=== PATIENT | female | born 1970 | race Hispanic/Latino ===

== ENCOUNTER 2017-10-02 10:50 | Emergency (ER) | payer OTHER, SELFPAY ==
[2017-10-02] MEDS ORDERED: predniSONE 20 MG TAB ONE (13:26)
== END 2017-10-02 13:53 | disposition home or self-care (01) ==
LOC: ERS 10:50
DX: M25.542 Pain in joints of left hand (principal); M25.541 Pain in joints of right hand; M19.90 Unspecified osteoarthritis, unspecified site; E78.5 Hyperlipidemia, unspecified; I10 Essential (primary) hypertension; F32.9 Major depressive disorder, single episode, unspecified
CPT/HCPCS: 99283; J7506

== ENCOUNTER 2017-11-16 11:31 | Outpatient (CLI) | payer OTHER | END 2017-11-16 11:32 | disposition home or self-care (01) | LOC: BICRAD 11:31 | PROVIDERS: ATTEND Family Medicine | DX: Z02.71 Encounter for disability determination (principal) ==

== ENCOUNTER 2019-12-02 15:21 | Inpatient (IN) | payer SELFPAY, OTHER ==
[~2019-12-02 15:21] MED LIST: Iopamidol 370 76% 50 ML VIAL FS ONE; Iopamidol-370 76% 500 ML 1 ML ONE
[2019-12-02] MEDS ORDERED: Enoxaparin Sodium 40 MG/0.4 ML SYRINGE SC SCH (16:00)
[2019-12-02] MEDS ORDERED: Lactated Ringer's 1,000 ML IV SCH (16:00)
[2019-12-02] MEDS: Acetaminophen 500 MG TAB PO PRN (16:18)
[2019-12-02] MEDS: Ketorolac Tromethamine 30 MG/ML VIAL IVP PRN (16:18)
[2019-12-02] MEDS ORDERED: Ondansetron ODT 4 MG TAB PO PRN (16:40)
[2019-12-02 16:45] VITALS: BMI 35.1
[2019-12-02 17:11] LABS: #Eosinphils 0.1 thou/uL (0.0-0.7); #Lymphocytes 1.3 thou/uL (1.20-3.40); #Monocytes 1.2 thou/uL (0.11-0.59); %Basophils 0.1 % (0.0-1.0); %Eosinophils 0.7 % (0.0-10.0); %Lymphocytes 7.6 % (21.0-51.0); %Monocytes 7.1 % (0.0-10.0); %Neutrophils 84.5 % (42.0-75.0); Hemoglobin 11.2 g/dL (12.0-16.0); Mean Corpuscular HGB CONC 31.1 g/dL (32.0-36.0); Mean Corpuscular Hemoglobin 29.6 pg (27.0-31.0); Mean Corpuscular Volume 95.3 fL (78.0-98.0); Mean Platelet Volume 7.4 fL (7.4-10.4); Platelet Count 398 thou/uL (130-400); RBC Distribution Width 12.4 % (11.5-14.5); Red Blood Cell (RBC) Count 3.79 mill/uL (4.20-5.40); White Blood Cell (WBC) Count 16.6 thou/uL (4.8-10.8)
[2019-12-02 17:50] LABS: ALT (SGPT) 14 U/L (8-55); AST (SGOT) 18 U/L (5-34); Alkaline Phosphatase 184 U/L (40-110); Anion Gap 12 mmol/L (10-20); BUN (Urea Nitrogen) 8 mg/dL (7.0-18.7); Bilirubin, Direct 0.4 mg/dL (0.1-0.3); Bilirubin, Total 0.6 mg/dL (0.2-1.2); Calc. Creatinine Clearance 146 mL/min (70-130); Calcium 8.8 mg/dL (7.8-10.44); Carbon Dioxide 28 mmol/L (22-29); Chloride 102 mmol/L (98-107); Estimated GFR-MDRD Greater than 90; Glucose 87 mg/dL (70-105); Lipase 10 U/L (8-78); Potassium 3.1 mmol/L (3.5-5.1); Protein, Total 6.8 g/dL (6.0-8.3); Sodium 139 mmol/L (136-145)
[2019-12-02] MEDS: Lactated Ringer's 1,000 ML IV SCH ×2 (17:51→22:24)
[2019-12-02] MEDS: Ondansetron PF 4 MG/2 ML Vial IVP PRN ×2 (17:51→22:22)
--- NOTE | 2019-12-02 22:36 | CT ---
CT ABDOMEN AND PELVIS WITH IV CONTRAST 12/02/2019 CLINICAL INFORMATION: Upper abdominal pain postcholecystectomy. Nausea and vomiting. COMPARISON: 11/21/2019 Technique: Multiple contiguous axial CT images are obtained through the abdomen and pelvis with IV contrast. Cor onal reformatted images are provided. FINDINGS: Lower Chest: Bibasilar consolidation is present with tiny bilateral pleural effusions. Consolidation may be related to volume loss, but pneumonia at either lung base cannot be excluded. Vessels: Abdominal aorta is normal in caliber without evidence of an aortic dissection. Abdomen: Portal vein:Patent Gallbladder: Surgically absent. There is a large fluid and gas collection seen in the gallbladder fos sa measuring 5.9 cm craniocaudal x8.7 cm AP x8.8 cm transverse worrisome for abscess collection. Adjacent inflammatory changes are seen. Liver: There is a small subcapsular collection seen along the medial and inferior margin of the poste rior segment right hepatic lobe which measures 8.9 cm x 1.6 cm. This can also be related to infection. There is linear low-density area seen within the liver immediately adjacent to the large c ollection in the gallbladder fossa which may represent reactive changes and minimal adjacent edema. Spleen: within normal limits. Pancreas: within normal limits. Adrenals: within normal limits. Kidneys: within normal limits. Bowel: Again noted is colonic diverticulosis. Loops of small bowel are normal in caliber. Appendix: Not visualized. Peritoneum: Fluid collection the gallbladder fossa with adjacent inflammatory stranding. Tiny amount of fluid is seen in the right paracolic gutter. Mesentery and Retroperitoneum: No enlarged mesenteric or retroperitoneal lymph nodes. Abdominal Wall: Focus of subcutaneous gas in the adipose layer left anterolateral aspect of the pelvi s probably related to site of recent injection. Pelvis: Reproductive Organs: No pelvic masses. Pelvis within normal limits. Bladder: Decompressed. Bones: No suspicious lytic or sclerotic osseous lesions are identified IMPRESSION: 1. Interval postcholecystectomy changes with a large fluid and gas collection in the gallbladder jayne a most suggestive of abscess collection. Adjacent inflammatory stranding is seen with tiny amount of fluid in the right paracolic gutter. 2. Tiny subcapsular collection along the medial aspect inferior right hepatic lobe. 3. Tiny bilateral pleural effusions with bibasilar consolidation. Areas of consolidation may be relat ed to volume loss, but pneumonia cannot be excluded.
--- NOTE | 2019-12-02 23:19 | RAD ---
EXAM: Two views chest PROVIDED CLINICAL HISTORY: Postoperative pain. COMPARISON: 11/21/2019 FINDINGS: Cardiac silhouette and bronchovascular markings are accentuated by the shallow depth of inspiration. There is mild patchy density at each lung base likely related to volume loss. Tiny left pleural effusion cannot be excluded. Postoperative changes with surgical clips right upper quadrant are noted . No other interval change. IMPRESSION: Bibasilar parenchymal densities probably due to bibasilar atelectasis. However, infiltrates at either lung base cannot be excluded. Follow-up chest x-ray with better depth of inspiration would be helpful..
[2019-12-03] MEDS: Ondansetron PF 4 MG/2 ML Vial IVP PRN (03:08)
[2019-12-03] MEDS: Lactated Ringer's 1,000 ML IV SCH ×4 (03:10→16:46)
[2019-12-03 05:09] LABS: #Eosinphils 0.1 thou/uL (0.0-0.7); #Lymphocytes 1.1 thou/uL (1.20-3.40); #Neutrophils 11.5 thou/uL (1.40-6.50); %Basophils 0.1 % (0.0-1.0); %Lymphocytes 7.8 % (21.0-51.0); %Monocytes 7.4 % (0.0-10.0); %Neutrophils 83.7 % (42.0-75.0); Hemoglobin 10.4 g/dL (12.0-16.0); Mean Corpuscular HGB CONC 31.5 g/dL (32.0-36.0); Mean Corpuscular Hemoglobin 29.4 pg (27.0-31.0); Mean Corpuscular Volume 93.2 fL (78.0-98.0); Platelet Count 422 thou/uL (130-400); RBC Distribution Width 12.3 % (11.5-14.5); Red Blood Cell (RBC) Count 3.55 mill/uL (4.20-5.40); White Blood Cell (WBC) Count 13.8 thou/uL (4.8-10.8)
[2019-12-03 05:33] LABS: ALT (SGPT) 11 U/L (8-55); AST (SGOT) 15 U/L (5-34); Albumin 2.6 g/dL (3.5-5.0); Alkaline Phosphatase 157 U/L (40-110); Anion Gap 12 mmol/L (10-20); BUN (Urea Nitrogen) 9 mg/dL (7.0-18.7); Bilirubin, Direct 0.5 mg/dL (0.1-0.3); Bilirubin, Total 0.7 mg/dL (0.2-1.2); Calc. Creatinine Clearance 132 mL/min (70-130); Calcium 8.3 mg/dL (7.8-10.44); Carbon Dioxide 27 mmol/L (22-29); Chloride 101 mmol/L (98-107); Estimated GFR-MDRD 87; Glucose 93 mg/dL (70-105); Lipase 8 U/L (8-78); Potassium 3.3 mmol/L (3.5-5.1); Sodium 137 mmol/L (136-145)
--- NOTE | 2019-12-03 05:37 | HP ---
HISTORY OF PRESENT ILLNESS: Tricia Bradley is seen today in followup after undergoing laparoscopic video cholecystectomy on 11/21/2019 for acute cholecystitis and cholelithiasis. Preoperatively, her bile duct was normal in caliber. Preoperatively, her liver function tests were normal. Lipase was normal. The patient was hospitalized overnight because of pain that she was experiencing. Preoperatively, her toxicology screen was positive for cocaine. Alcohol, nondetectable. The patient arrives in my office today stating that she has been tolerating liquids until 2 days ago, but now she is having some nausea and vomiting. She has had right upper quadrant subcostal pain that has been limiting her activity. She arrives in my office in a wheelchair. Sclerae are nonicteric. Skin is nonjaundiced, stating that she cannot tolerate liquids at all, cannot hold anything down and her pain is intolerable. She is admitted for postoperative evaluation. ALLERGIES: NONE. TOBACCO: None. ALCOHOL: None. MEDICATIONS: Ultram p.r.n. for arthritis. PAST SURGICAL HISTORY: , appendectomy, recent cholecystectomy. No cholangiograms. PAST MEDICAL HISTORY: Noncontributory. SOCIAL HISTORY: 4, para 4. Unemployed. She lives with her boyfriend. PRIMARY CARE PHYSICIAN: Maximiliano Alvarez MD PHYSICAL EXAMINATION: VITAL SIGNS: Weight 194 pounds, height 5 feet 2 inches, blood pressure 107/40, heart rate 82, temperature 98.6 degrees. She rates her pain as a 10. HEAD, EARS, EYES, NOSE AND THROAT: Unremarkable. Sclera are nonicteric. Oropharynx is dry. SKIN: Nonjaundiced. NECK: Carotids are palpable. No neck masses. LUNGS: Clear to auscultation. No wheezing. CARDIAC: Regular rate and rhythm without murmur or gallop. ABDOMEN: Soft, postoperative tenderness. Abdomen nondistended. Mild tenderness in right upper quadrant, probably as expected postoperatively. EXTREMITIES: Unremarkable. ASSESSMENT AND PLAN: Postoperative pain, nausea and vomiting, unable to tolerate her diet. We will plan hydration and evaluation. Based on laboratory findings, consider CAT scan. Check liver function tests and lipase. Job ID: [id number]
[2019-12-03] MEDS: Ketorolac Tromethamine 30 MG/ML VIAL IVP PRN ×3 (06:05→23:48)
[2019-12-03] MEDS: Enoxaparin Sodium 40 MG/0.4 ML SYRINGE SC SCH (09:23)
[2019-12-03] MEDS: Pantoprazole 40 MG VIAL IVP SCH (09:26)
[2019-12-03] MEDS: Piperacillin/Tazobactam 4.5 GM in Sodium Chloride 0.9% 100 ML IVPB SCH ×3 (09:37→21:50)
[2019-12-03 10:03] LABS: INR-International Normal Ratio 1.2; Prothrombin Time 14.8 sec (12.0-14.7)
--- NOTE | 2019-12-03 12:19 | NM ---
HEPATOBILIARY SCAN: HISTORY:Evaluate for bile leak RADIOPHARMACEUTICAL: 5.0 mCi Technetium 99m Mebrofenin injected intravenously FINDINGS: There is normal uptake of the radiotracer from the blood pool and excretion into the bowel. There is no extraluminal radiotracer accumulation to suggest presence of a bile leak. IMPRESSION:No evidence of bile leak.
[2019-12-03] MEDS ORDERED: Fentanyl 100 MCG/2 ML VIAL ONE (14:40)
[2019-12-03] MEDS ORDERED: Midazolam HCl 2 mg/2 ml Vial ONE (14:41)
--- NOTE | 2019-12-03 16:09 | PRG ---
DATE OF SERVICE: 12/03/2019 SUBJECTIVE: Ms. Bradley underwent a HIDA scan, that did not show a bile leak. Abdominal pelvic CAT scan revealed air-fluid collection right subhepatic. The patient's liver function test has been normal. She has been afebrile, although complaining of pain. OBJECTIVE: VITAL SIGNS: Temperature 98 degrees, pulse 72, blood pressure 153/87. LUNGS: Clear to auscultation. CARDIAC: Regular rate and rhythm without murmur, rub, or gallop. ABDOMEN: Soft, tenderness in the right upper quadrant. ASSESSMENT: Subhepatic abscess . PLAN: CT-guided drainage. Radiology has been requested to do that today. She will be taught drain care and wound care. Job ID: [id number]
--- NOTE | 2019-12-03 16:21 | CT ---
CT-guided right upper quadrant intra-abdominal abscess drainage INDICATION: Right upper quadrant intra-abdominal abscess TECHNIQUE: Informed consent was obtained. Preprocedure CT was performed for guidance purposes only. S ite overlying the collection was marked on the skin. Patient underwent conscious sedation under guidance of the radiology nurse. The patient received 50 mcg of IV fentanyl and 1 mg of IV Versed. Si te overlying the collection was sterilely prepped and draped. Buffered 1% lidocaine was administered into the overlying subcutaneous tissues and abdominal wall. Small dermatotomy was made. A 25-gauge 3 1/2 inch needle was placed in the region of the collection. CT images were performed demonstrated appropriate localization of the fluid collection in the right upper quadrant abdomen. Ut ilizing a tandem trocar method, a 5 [place]i [employer] catheter was guided into the collection. There is aspiration of purulent fluid. Following this an 035 guidewire was advanced collection. CT was utilize d to verify wire localization in the collection. Following this an 8 [place]raini soft tissue dilator was utilized. Following this, an 8 Bahraini all-purpose drain was advanced over the wire and into the fluid collection. The wire was removed. The pigtail catheter was formed. Following this 125 cc of purulent fluid was aspirated from the fluid collection. The 8 [place]raini all-purpose drain was then sewn to the skin. A Percu-Stay device was in place. The drainage catheter was then flushed utilizing 15 cc of sterile saline. The catheter was then placed to drainage by gravity within a drainage bag. The patient tolerated procedure without difficulty. 3 cc of the purulent aspirate was submitted to the laboratory for aerobic and anaerobic culture with Gram stain. IMPRESSION: Successful CT-guided right upper quadrant abscess drainage catheter placement. 125 cc of purulent fluid was aspirated from the fluid collection.
[2019-12-03 17:48] LABS: BF Color Brown; Clarity Cloudy/Turbid (Clear); Tube # EDTA
[2019-12-03] MEDS: Acetaminophen 500 MG TAB PO PRN (19:35)
[2019-12-04] MEDS: Lactated Ringer's 1,000 ML IV SCH ×3 (02:48→17:30)
[2019-12-04] MEDS: Piperacillin/Tazobactam 4.5 GM in Sodium Chloride 0.9% 100 ML IVPB SCH ×4 (03:23→22:07)
[2019-12-04] MEDS: Acetaminophen 500 MG TAB PO PRN ×2 (03:27→17:29)
[2019-12-04] MEDS: Ketorolac Tromethamine 30 MG/ML VIAL IVP PRN ×2 (05:50→14:43)
[2019-12-04] MEDS ORDERED: Morphine 4 MG/ML VIAL SLOW IVP PRN (07:15)
[2019-12-04] MEDS ORDERED: traMADol HCl 50 MG TAB PO PRN (07:47)
[2019-12-04] MEDS: Pantoprazole 40 MG VIAL IVP SCH (09:01)
[2019-12-04] MEDS: Enoxaparin Sodium 40 MG/0.4 ML SYRINGE SC SCH (09:02)
[2019-12-04] MEDS: Polyethylene Glycol 3350 17 GM Packet PO SCH (09:02)
[2019-12-04] MEDS: traMADol HCl 50 MG TAB PO PRN ×2 (11:30→21:17)
--- NOTE | 2019-12-04 18:56 | PRG ---
DATE OF SERVICE: 12/04/2019 SUBJECTIVE: Ms. Bradley is doing better today. She feels better. She wants to go home. Temperature 97.6 degrees, pulse 62, blood pressure 129/85. She is still having right upper quadrant pain. She is tolerating her diet. Drainage placed by CT scan yesterday is purulent drainage. Cultures, Gram stain, gram-negative donald. White count 13, down from 16 today. Laboratories normal. OBJECTIVE: LUNGS: Clear to auscultation. CARDIAC: Regular rate and rhythm without murmur or gallop. ABDOMEN: Soft. Mild tenderness in right upper quadrant. ASSESSMENT AND PLAN: Post cholecystectomy, subhepatic abscess, status post CT-guided drainage. HIDA scan negative for a leak. Drainage is nonbilious. Continue intravenous antibiotics for another 24 hours. Anticipate discharge home later tomorrow on oral antibiotics. Today and tomorrow, nurses will teach her drain care. She will need to follow up in my office in about 10 days with a repeat CAT scan of her abdomen. She is self-pay. We will need to arrange this. Job ID: [id number]
[2019-12-05] MEDS: Lactated Ringer's 1,000 ML IV SCH ×2 (01:31→11:01)
[2019-12-05] MEDS: Piperacillin/Tazobactam 4.5 GM in Sodium Chloride 0.9% 100 ML IVPB SCH ×2 (04:29→09:26)
[2019-12-05 06:04] LABS: #Eosinphils 0.2 thou/uL (0.0-0.7); #Lymphocytes 1.3 thou/uL (1.20-3.40); #Monocytes 0.5 thou/uL (0.11-0.59); #Neutrophils 4.2 thou/uL (1.40-6.50); %Basophils 0.1 % (0.0-1.0); %Eosinophils 2.6 % (0.0-10.0); %Lymphocytes 21.4 % (21.0-51.0); Hemoglobin 11.1 g/dL (12.0-16.0); Mean Corpuscular HGB CONC 32.5 g/dL (32.0-36.0); Mean Corpuscular Hemoglobin 30.2 pg (27.0-31.0); Mean Corpuscular Volume 93.1 fL (78.0-98.0); Mean Platelet Volume 7.5 fL (7.4-10.4); Platelet Count 470 thou/uL (130-400); RBC Distribution Width 12.3 % (11.5-14.5); Red Blood Cell (RBC) Count 3.66 mill/uL (4.20-5.40); White Blood Cell (WBC) Count 6.1 thou/uL (4.8-10.8)
[2019-12-05] MEDS: traMADol HCl 50 MG TAB PO PRN (06:50)
[2019-12-05] MEDS: Enoxaparin Sodium 40 MG/0.4 ML SYRINGE SC SCH (09:25)
[2019-12-05] MEDS: Polyethylene Glycol 3350 17 GM Packet PO SCH (09:26)
[2019-12-05] MEDS: Ketorolac Tromethamine 30 MG/ML VIAL IVP PRN (09:27)
[2019-12-05] MEDS: Pantoprazole 40 MG VIAL IVP SCH (09:27)
[2019-12-05] MEDS ORDERED: Ibuprofen 600 MG TAB PO PRN (12:09)
[2019-12-05 12:48] VITALS: BP 158/90; TEMP 98.1
[2019-12-05] MEDS ORDERED: Amoxicillin/Potassium Clav 875 MG TAB PO SCH (21:00)
--- NOTE | 2019-12-06 03:37 | DIS ---
DATE OF ADMISSION: 12/02/2019 DATE OF DISCHARGE: 12/05/2019 DISCHARGE DIAGNOSES: Post cholecystectomy, subhepatic abscess. PROCEDURES: This hospitalization; HIDA scan, no bile leak. CAT scan, subhepatic abscess. 12/03 CT-guided drainage of subhepatic abscess. FOLLOWUP: Dr. Loco's office 12/13/2019 after 0900 [facility] CAT scan. Financial counseling arranged to see patient prior to discharge, she is lack of insurance. DISCHARGE MEDICATIONS: Sent home with; 1. Augmentin 875 b.i.d. 14 days. 2. Tramadol 50 mg #30 one refill. 3. Motrin [id number] and Tylenol qqlg-[id number] for pain as necessary. DIET AND ACTIVITY: As tolerated. HISTORY: A 49-year-old female status post laparoscopic cholecystectomy for acute cholecystitis 11/21/2019. She presented to my office with increased pain, admitted to the hospital directly. Had normal liver function tests and slightly elevated white count, undergoing the above studies and procedures and discharged home with a CT-guided drain, which she is instructed on managing flushing it twice a day with saline, recording the output. She is to have a CAT scan on the day identified above and follow up in my office after that for probable drain removal. Job ID: [id number]
--- NOTE | 2019-12-06 13:13 | CT ---
CT-guided right upper quadrant intra-abdominal abscess drainage INDICATION: Right upper quadrant intra-abdominal abscess TECHNIQUE: Informed consent was obtained. Preprocedure CT was performed for guidance purposes only. S ite overlying the collection was marked on the skin. Patient underwent conscious sedation under guidance of the radiology nurse. The patient received 50 mcg of IV fentanyl and 1 mg of IV Versed. Si te overlying the collection was sterilely prepped and draped. Buffered 1% lidocaine was administered into the overlying subcutaneous tissues and abdominal wall. Small dermatotomy was made. A 25-gauge 3 1/2 inch needle was placed in the region of the collection. CT images were performed demonstrated appropriate localization of the fluid collection in the right upper quadrant abdomen. Ut ilizing a tandem trocar method, a 5 [place]ian [employer] catheter was guided into the collection. There is aspiration of purulent fluid. Following this an 035 guidewire was advanced collection. CT was utilize d to verify wire localization in the collection. Following this an 8 Estonian soft tissue dilator was utilized. Following this, an 8 Estonian all-purpose drain was advanced over the wire and into the fluid collection. The wire was removed. The pigtail catheter was formed. Following this 125 cc of purulent fluid was aspirated from the fluid collection. The 8 Estonian all-purpose drain was then sewn to the skin. A Percu-Stay device was in place. The drainage catheter was then flushed utilizing 15 cc of sterile saline. The catheter was then placed to drainage by gravity within a drainage bag. The patient tolerated procedure without difficulty. 3 cc of the purulent aspirate was submitted to the laboratory for aerobic and anaerobic culture with Gram stain. IMPRESSION: Successful CT-guided right upper quadrant abscess drainage catheter placement. 125 cc of purulent fluid was aspirated from the fluid collection. Transcribed Date/Time: 12/06/2019 1:13 PM
--- NOTE | 2019-12-08 08:54 | PQF ---
[employer] Manager Installation [employer] Winform ViewerRODRIGUEZ NANCYSELIN MILIAN MD [id number] CLINICAL DOCUMENTATION CLARIFICATION FORM: POST DISCHARGE Addendum to original discharge summary date: ____ Late entry note date: __ DATE: 12/08/2019 ATTN: Selin Rockwell Please exercise your independent, professional judgment in responding to the clarification form. Clinical indicators are provided on the bottom of this form for your review Please check appropriate box(s): [ ] Subhepatic abscess is a complication of recent cholecystectomy [ ] Subhepatic abscess is not a complication of recent cholecystectomy [ ] Other diagnosis [ ] Unable to determine In addition, please specify: Present on Admission (POA): [ ] Yes [ ] No [ ] Unable to determine CLINICAL INDICATORS - SIGNS / SYMPTOMS / LABS Post cholecystectomy, subhepatic abscess, status post CT-guided drainage - PN by Selin Loco MD Interval postcholecystectomy changes with a large fluid and gas collection in the gallbladder fossa most suggestive of abscess collection - CT abdomen/pelvic 12/01 by Danny Cole MD Patient seen today in followup after undergoing laparoscopic video cholecystectomy on 11/20 for acute cholecystitis and cholelithiasis - H&P Postoperative pain, nausea and vomiting, unable to tolerate her diet. Based on laboratory findings, consider CAT scan - H&P RISK FACTORS Recent laparoscopic cholecystectomy - Discharge summary TREATMENT: CT-guided intraabdominal abscess drainage - CT abscess drainage 12/02 by Nik Campbell MD IV Zosyn 12/02 to 12/04 - Medications Augmentin 875 mg PO 12/04 - Medication (This form is maintained as a part of the permanent medical record) 2014 [employer] All Rights Reserved Carina [email or web address]
== END 2019-12-05 15:50 | disposition home or self-care (01) | DRG 373 ==
LOC: SURG B 15:21
PROVIDERS: ADMIT Specialist; ATTEND Specialist
PROC: 0W9G30Z Drainage of Peritoneal Cavity with Drainage Device, Percutaneous Approach (ICD-10-PCS; principal; 2019-12-03)
DX: K65.1 Peritoneal abscess (principal); F14.10 Cocaine abuse, uncomplicated; Z90.49 Acquired absence of other specified parts of digestive tract
CPT/HCPCS: 36415; 49020; 71046; 74177; 77002; 78226; 80048; 80076; 83690; 85025; 85060; 85610; 87070; 87077; 87186; 87205; 89051; A9537; C1729; C9113; J1650; J1885; J2250; J2405; J2543; J3010; J3490; Q9967

== ENCOUNTER 2019-12-07 13:15 | Emergency (ER) | payer OTHER, SELFPAY ==
[~2019-12-07 13:15] MED LIST changes: -Iopamidol 370 76% 50 ML VIAL FS ONE
--- NOTE | 2019-12-07 14:33 | CT ---
CT Abdomen Pelvis W Con: 12/07/2019 1:42 PM CLINICAL INFORMATION: Status post pigtail drainage catheter placement in an abscess in the gallbladde r fossa COMPARISON 12/02/2019: None. TECHNIQUE: Multiple contiguous axial images were obtained and a CT of the abdomen and pelvis with IV contrast. C oronal and sagittal reformats were performed. FINDINGS: Lower Chest: Small right pleural effusion with adjacent atelectasis Abdomen: Liver: The previously seen large fluid collection in the gallbladder fossa is nearly completely gone. A pigtail catheter is seen in the anterior aspect of the gallbladder fossa. Small bubbles of air are seen in the gallbladder fossa. Bile Ducts: Normal caliber. Gallbladder : Removed Pancreas: within normal limits. Spleen: within normal limits. Adrenals: within normal limits. Kidneys: within normal limits. Pelvis: Reproductive Organs: No pelvic masses. Ureters: within normal limits. Bladder: within normal limits. Peritoneum: No ascites or free air, no fluid collection. Bowel: Normal caliber. Scattered diverticula in the colon. Mesentery and Retroperitoneum: No enlarged mesenteric or retroperitoneal lymph nodes. Vessels: Normal. Abdominal Wall: within normal limits. Bones: Within normal limits IMPRESSION: 1. Resolution of abscess in the gallbladder fossa adjacent to the liver 2. Diverticulosis 3. Trace right pleural effusion with adjacent atelectasis
== END 2019-12-07 15:11 | disposition home or self-care (01) ==
LOC: ERS 13:15
DX: Z48.815 Encounter for surgical aftercare following surgery on the digestive system (principal); M19.90 Unspecified osteoarthritis, unspecified site; E78.5 Hyperlipidemia, unspecified; I10 Essential (primary) hypertension; F17.210 Nicotine dependence, cigarettes, uncomplicated; Z79.899 Other long term (current) drug therapy; Z79.891 Long term (current) use of opiate analgesic
CPT/HCPCS: 74177; Q9967

== ENCOUNTER 2020-05-23 12:26 | Emergency (ER) | payer SELFPAY | END 2020-05-23 13:30 | disposition home or self-care (01) | LOC: ERS 12:26 | DX: M19.031 Primary osteoarthritis, right wrist (principal); E78.5 Hyperlipidemia, unspecified; I10 Essential (primary) hypertension; F17.210 Nicotine dependence, cigarettes, uncomplicated | CPT/HCPCS: 99281 ==

== ENCOUNTER 2020-07-10 07:35 | Outpatient (CLI) | payer OTHER ==
--- NOTE | 2020-07-10 08:52 | ULT ---
Pelvic ultrasound: 07/10/2020 COMPARISON: None HISTORY: Postmenopausal bleeding TECHNIQUE: Multiplanar grayscale sonographic imaging of the pelvis is obtained with transabdominal an d endovaginal imaging. The ovaries are assessed with Doppler interrogation including color flow and spectral analysis. FINDINGS: The uterus measures 11.1 x 4.9 x 5.5 cm. No uterine mass is identified. The endometrium is somewhat ill-defined and difficult to accurately measure. The estimated thickness of the endometrium is approximately 7 mm on the transaxial imaging. No free fluid is seen in the pelvis. There is a 5 x 5 mm hypoechoic area associated with the endometrial stripe which may represent a smal l cystic structure. The right ovary measures 2.7 x 1.6 x 1.7 cm and the left ovary measures 2.7 x 3.2 x 1.7 cm. The ovari es demonstrate normal blood flow without evidence for mass. IMPRESSION: The endometrial stripe is difficult to measure/define. Endometrial stripe is estimated at 7 mm which would be slightly thickened/abnormal for a postmenopausal female. Differential diagnosis for a thickened endometrium includes endometrial hyperplasia, endometrial polyp disease, an d endometrial carcinoma.
== END 2020-07-10 07:36 | disposition home or self-care (01) ==
LOC: BICULT 07:35
PROVIDERS: ATTEND Family Medicine
DX: N95.0 Postmenopausal bleeding (principal)
CPT/HCPCS: 76856

== ENCOUNTER 2022-06-05 22:51 | Inpatient (IN) | payer OTHER ==
[2022-06-06] MEDS ORDERED: Dextrose 50% Abboject 50 ML SYRINGE SLOW IVP PRN (01:34)
[2022-06-06] MEDS ORDERED: Dextrose 5% in Water 1,000 ML IV PRN (01:34)
[2022-06-06] MEDS ORDERED: hydrALAZINE 20 MG/ML VIAL SLOW IVP PRN (01:34)
[2022-06-06] MEDS ORDERED: Ondansetron PF 4 MG/2 ML Vial IVP PRN (01:34)
[2022-06-06 01:38] LABS: #Lymphocytes 1.1 thou/uL (1.20-3.40); #Monocytes 0.6 thou/uL (0.11-0.59); #Neutrophils 8.3 thou/uL (1.40-6.50); %Basophils 0.4 % (0.0-1.0); %Eosinophils 0.2 % (0.0-10.0); %Lymphocytes 10.9 % (21.0-51.0); %Monocytes 6.2 % (0.0-10.0); %Neutrophils 82.3 % (42.0-75.0); Hemoglobin 12.5 g/dL (12.0-16.0); Mean Corpuscular HGB CONC 34.7 g/dL (32.0-36.0); Mean Corpuscular Hemoglobin 34.2 pg (27.0-31.0); Mean Corpuscular Volume 98.6 fl (78.0-98.0); Mean Platelet Volume 7.7 fL (7.4-10.4); Platelet Count 224 10x3/uL (130-400); RBC Distribution Width 12.2 % (11.5-14.5); Red Blood Cell (RBC) Count 3.65 mill/uL (4.20-5.40)
[2022-06-06] MEDS ORDERED: Sodium Chloride 0.9% 1,000 ML IV SCH ×3 (01:45→03:00)
[2022-06-06] MEDS ORDERED: Ketorolac Tromethamine 30 MG/ML VIAL IVP SCH (01:45)
[2022-06-06 01:46] LABS: Prothrombin Time 13.1 sec (12.0-14.7)
[2022-06-06 01:47] LABS: PTT 33.6 sec (22.9-36.1)
[2022-06-06] MEDS: Morphine 4 MG/ML VIAL SLOW IVP PRN ×3 (01:49→15:57)
[2022-06-06 01:58] LABS: ALT (SGPT) 43 U/L (8-55); AST (SGOT) 30 U/L (5-34); Albumin 4.1 g/dL (3.5-5.0); Alkaline Phosphatase 118 U/L (40-110); Anion Gap 14 mmol/L (10-20); BUN (Urea Nitrogen) 17 mg/dL (9.8-20.1); Calc. Creatinine Clearance 136 mL/min (70-130); Calcium 8.8 mg/dL (7.8-10.44); Carbon Dioxide 24 mmol/L (22-29); Chloride 107 mmol/L (98-107); Estimated GFR 83; Globulin 3.3 g/dL (2.4-3.5); Glucose 124 mg/dL (70-105); Magnesium 1.9 mg/dL (1.6-2.6); Phosphorus 2.5 mg/dL (2.3-4.7); Potassium 4.5 mmol/L (3.5-5.1); Protein, Total 7.4 g/dL (6.0-8.3); Sodium 140 mmol/L (136-145)
[2022-06-06] MEDS: Cyclobenzaprine 10 MG TAB PO PRN (02:00)
[2022-06-06 02:06] VITALS: BMI 44.3
[2022-06-06] MEDS ORDERED: Sodium Phosphate 15 MMOL in Sodium Chloride 0.9% 250 ML 250 ML IVPB SCH (03:00)
[2022-06-06 04:34] LABS: Amphetamine Not Detected (NotDetected); Barbiturates Screen Not Detected (NotDetected); Benzodiazepine Screen Not Detected (NotDetected); Cocaine Metabolite Screen Detected (NotDetected); Methadone Not Detected (NotDetected); Methamphetamine Not Detected (NotDetected); Opiate Screen Detected (NotDetected); Oxycodone Screen Not Detected (NotDetected); Phencyclidine (PCP) Not Detected (NotDetected); THC/Cannabinoid Screen Not Detected (NotDetected); Tricyclic Screen Not Detected (NotDetected)
[2022-06-06] MEDS: Acetaminophen/Codeine 30-300mg Tablet PO SCH ×3 (04:43→17:50)
[2022-06-06] MEDS: Acetaminophen 325 MG TAB PO SCH ×3 (04:44→17:49)
[2022-06-06] MEDS: Gabapentin 300 MG CAP PO SCH ×3 (04:44→21:12)
[2022-06-06 05:00] LABS: Bilirubin, Total 0.4 mg/dL (0.2-1.2)
[2022-06-06] MEDS: Famotidine 20 MG TAB PO SCH ×2 (08:34→21:12)
[2022-06-06] MEDS: Ketorolac Tromethamine 30 MG/ML VIAL IVP SCH ×3 (08:34→21:10)
[2022-06-06] MEDS ORDERED: Magnesium 2 GM/50 ML(in water) 2 GM in Premix Bag 1 BAG IVPB SCH (09:00)
[2022-06-06] MEDS ORDERED: TETANUS, DIPHTHERIA TOX,ADULT (TDVAX) 0.5 ML VIAL IM ONE (09:00)
[2022-06-06] MEDS: Polyethylene Glycol 3350 17 GM Packet PO SCH (09:30)
[2022-06-06] MEDS: Senokot S 8.6-50 MG TAB PO SCH ×2 (09:30→21:12)
[2022-06-06] MEDS ORDERED: CEFAZOLIN 2 GM in Sodium Chloride 0.9% 100 ML IVPB SCH (13:00)
[2022-06-07] MEDS: Acetaminophen/Codeine 30-300mg Tablet PO SCH ×4 (00:34→18:32)
[2022-06-07] MEDS: Acetaminophen 325 MG TAB PO SCH ×4 (00:34→18:32)
[2022-06-07] MEDS: Ketorolac Tromethamine 30 MG/ML VIAL IVP SCH ×4 (03:29→20:38)
[2022-06-07] MEDS: Gabapentin 300 MG CAP PO SCH ×3 (05:03→20:38)
[2022-06-07 06:40] LABS: #Eosinphils 0.1 thou/uL (0.0-0.7); #Lymphocytes 0.8 thou/uL (1.20-3.40); #Monocytes 0.5 thou/uL (0.11-0.59); #Neutrophils 4.7 thou/uL (1.40-6.50); %Basophils 0.3 % (0.0-1.0); %Eosinophils 1.9 % (0.0-10.0); %Monocytes 7.4 % (0.0-10.0); %Neutrophils 77.4 % (42.0-75.0); Mean Corpuscular HGB CONC 32.6 g/dL (32.0-36.0); Mean Corpuscular Hemoglobin 32.7 pg (27.0-31.0); Mean Platelet Volume 7.7 fL (7.4-10.4); Platelet Count 184 10x3/uL (130-400); RBC Distribution Width 12.4 % (11.5-14.5); Red Blood Cell (RBC) Count 3.38 mill/uL (4.20-5.40); White Blood Cell (WBC) Count 6.1 10x3/uL (4.8-10.8)
[2022-06-07 06:58] LABS: Anion Gap 10 mmol/L (10-20); BUN (Urea Nitrogen) 13 mg/dL (9.8-20.1); Calc. Creatinine Clearance 141 mL/min (70-130); Calcium 8.2 mg/dL (7.8-10.44); Carbon Dioxide 25 mmol/L (22-29); Chloride 106 mmol/L (98-107); Estimated GFR 87; Glucose 129 mg/dL (70-105); Magnesium 2.2 mg/dL (1.6-2.6); Phosphorus 2.8 mg/dL (2.3-4.7); Potassium 4.1 mmol/L (3.5-5.1); Sodium 137 mmol/L (136-145)
[2022-06-07] MEDS: Morphine 4 MG/ML VIAL SLOW IVP PRN (07:59)
[2022-06-07] MEDS: Famotidine 20 MG TAB PO SCH ×2 (07:59→20:38)
[2022-06-07] MEDS: Polyethylene Glycol 3350 17 GM Packet PO SCH (09:09)
[2022-06-07] MEDS: Senokot S 8.6-50 MG TAB PO SCH ×2 (09:09→20:37)
[2022-06-07] MEDS ORDERED: Bupivacaine PF 0.5% 30 ML VIAL ONE (14:08)
[2022-06-07] MEDS ORDERED: Midazolam HCl 2 mg/2 ml Vial ONE (14:08)
[2022-06-07] MEDS ORDERED: Ropivacaine 0.5% HCl/PF (150 MG/30 ML VIAL) ONE (14:08)
[2022-06-07] MEDS ORDERED: Fentanyl 100 MCG/2 ML VIAL ONE (14:08)
[2022-06-07] MEDS ORDERED: Fentanyl 250 MCG/5 ML VIAL ONE (14:27)
[2022-06-07] MEDS ORDERED: CEFAZOLIN 2 GM VIAL ONE (14:35)
[2022-06-07] MEDS ORDERED: Sodium Chloride 0.9% 100 ML ONE (14:35)
[2022-06-07] MEDS ORDERED: PROPOFOL 200 MG/20 ML VIAL ONE (14:51)
[2022-06-07] MEDS ORDERED: Rocuronium Bromide 10 MG/ML (10ML VIAL) ONE (14:51)
[2022-06-07] MEDS ORDERED: Ondansetron PF 4 MG/2 ML Vial ONE (14:51)
[2022-06-07] MEDS ORDERED: NEOSTIGMINE 3 MG/3 ML SYR 3 MG/3 ML SYRINGE ONE (14:51)
[2022-06-07] MEDS ORDERED: Dexamethasone 20 MG/5 ML VIAL ONE (14:51)
[2022-06-07] MEDS ORDERED: Glycopyrrolate 0.2 MG/ML 5 ML SYRINGE ONE (14:51)
[2022-06-07] MEDS ORDERED: Promethazine HCl 25 MG/ML VIAL IVPB PRN (15:29)
[2022-06-07] MEDS ORDERED: Ondansetron HCl/PF 4 MG/2 ML Vial IVP PRN (15:29)
[2022-06-07] MEDS ORDERED: Promethazine HCl 25 MG/ML VIAL IM PRN (15:29)
[2022-06-07] MEDS ORDERED: SUGAMMADEX SODIUM 200 MG/2 ML VIAL ONE (16:56)
[2022-06-07] MEDS: Cyclobenzaprine 10 MG TAB PO PRN (20:46)
[2022-06-08] MEDS: Acetaminophen/Codeine 30-300mg Tablet PO SCH ×5 (01:13→23:43)
[2022-06-08] MEDS: Acetaminophen 325 MG TAB PO SCH ×5 (01:13→23:43)
[2022-06-08] MEDS: Ketorolac Tromethamine 30 MG/ML VIAL IVP SCH ×5 (01:31→20:25)
[2022-06-08] MEDS: Gabapentin 300 MG CAP PO SCH ×3 (05:18→20:25)
[2022-06-08 06:13] LABS: #Lymphocytes 0.9 thou/uL (1.20-3.40); #Monocytes 0.6 thou/uL (0.11-0.59); #Neutrophils 6.4 thou/uL (1.40-6.50); %Eosinophils 0.1 % (0.0-10.0); %Lymphocytes 11.2 % (21.0-51.0); %Monocytes 7.8 % (0.0-10.0); Hemoglobin 10.7 g/dL (12.0-16.0); Mean Corpuscular HGB CONC 32.7 g/dL (32.0-36.0); Mean Corpuscular Hemoglobin 32.6 pg (27.0-31.0); Mean Corpuscular Volume 99.7 fl (78.0-98.0); Mean Platelet Volume 7.7 fL (7.4-10.4); Platelet Count 199 10x3/uL (130-400); RBC Distribution Width 12.3 % (11.5-14.5); Red Blood Cell (RBC) Count 3.28 mill/uL (4.20-5.40); White Blood Cell (WBC) Count 7.9 10x3/uL (4.8-10.8)
[2022-06-08 06:34] LABS: Anion Gap 14 mmol/L (10-20); BUN (Urea Nitrogen) 14 mg/dL (9.8-20.1); Calc. Creatinine Clearance 136 mL/min (70-130); Calcium 8.4 mg/dL (7.8-10.44); Carbon Dioxide 22 mmol/L (22-29); Chloride 105 mmol/L (98-107); Estimated GFR 83; Glucose 128 mg/dL (70-105); Potassium 4.2 mmol/L (3.5-5.1); Sodium 137 mmol/L (136-145)
[2022-06-08] MEDS: Enoxaparin Sodium 30 MG/0.3 ML SYRINGE SC SCH ×2 (08:28→20:25)
[2022-06-08] MEDS: Polyethylene Glycol 3350 17 GM Packet PO SCH (08:29)
[2022-06-08] MEDS: Senokot S 8.6-50 MG TAB PO SCH ×2 (08:29→20:26)
[2022-06-08] MEDS: Cyclobenzaprine 10 MG TAB PO PRN ×2 (08:29→20:25)
[2022-06-08] MEDS: Famotidine 20 MG TAB PO SCH ×2 (08:29→20:26)
[2022-06-09] MEDS: Ketorolac Tromethamine 30 MG/ML VIAL IVP SCH ×3 (03:04→15:18)
[2022-06-09] MEDS: Gabapentin 300 MG CAP PO SCH ×3 (05:34→20:53)
[2022-06-09] MEDS: Acetaminophen 325 MG TAB PO SCH ×4 (05:34→23:57)
[2022-06-09] MEDS: Acetaminophen/Codeine 30-300mg Tablet PO SCH ×4 (05:34→23:56)
[2022-06-09 08:35] LABS: Anion Gap 11 mmol/L (10-20); BUN (Urea Nitrogen) 15 mg/dL (9.8-20.1); Calc. Creatinine Clearance 128 mL/min (70-130); Calcium 8.2 mg/dL (7.8-10.44); Carbon Dioxide 25 mmol/L (22-29); Chloride 104 mmol/L (98-107); Estimated GFR 77; Glucose 110 mg/dL (70-105); Potassium 3.8 mmol/L (3.5-5.1); Sodium 136 mmol/L (136-145)
[2022-06-09] MEDS: Famotidine 20 MG TAB PO SCH ×2 (09:47→20:53)
[2022-06-09] MEDS: Polyethylene Glycol 3350 17 GM Packet PO SCH (09:47)
[2022-06-09] MEDS: Enoxaparin Sodium 30 MG/0.3 ML SYRINGE SC SCH ×2 (09:47→20:52)
[2022-06-09] MEDS: Senokot S 8.6-50 MG TAB PO SCH ×2 (09:47→20:53)
[2022-06-10] MEDS: Acetaminophen 325 MG TAB PO SCH ×4 (05:39→23:10)
[2022-06-10] MEDS: Acetaminophen/Codeine 30-300mg Tablet PO SCH ×4 (05:39→23:09)
[2022-06-10] MEDS: Gabapentin 300 MG CAP PO SCH ×3 (05:40→20:55)
[2022-06-10] MEDS: Enoxaparin Sodium 30 MG/0.3 ML SYRINGE SC SCH ×2 (09:10→20:55)
[2022-06-10] MEDS: Famotidine 20 MG TAB PO SCH ×2 (09:10→20:56)
[2022-06-10] MEDS: Senokot S 8.6-50 MG TAB PO SCH ×2 (09:10→20:56)
[2022-06-10] MEDS: Polyethylene Glycol 3350 17 GM Packet PO SCH (09:10)
[2022-06-10] MEDS: Cyclobenzaprine 10 MG TAB PO PRN ×2 (09:19→22:26)
[2022-06-11] MEDS: Acetaminophen/Codeine 30-300mg Tablet PO SCH ×4 (05:14→23:19)
[2022-06-11] MEDS: Gabapentin 300 MG CAP PO SCH ×3 (05:14→20:46)
[2022-06-11] MEDS: Acetaminophen 325 MG TAB PO SCH ×4 (05:15→23:19)
[2022-06-11] MEDS: Famotidine 20 MG TAB PO SCH ×2 (10:00→20:45)
[2022-06-11] MEDS: Enoxaparin Sodium 30 MG/0.3 ML SYRINGE SC SCH ×2 (10:00→20:45)
[2022-06-11] MEDS: Polyethylene Glycol 3350 17 GM Packet PO SCH (10:01)
[2022-06-11] MEDS: Senokot S 8.6-50 MG TAB PO SCH ×2 (10:01→20:46)
[2022-06-11] MEDS: Cyclobenzaprine 10 MG TAB PO PRN (13:39)
[2022-06-11] MEDS ORDERED: traMADol HCl 50 MG TAB PO PRN (14:32)
[2022-06-11] MEDS ORDERED: Ibuprofen 200 MG TAB PO PRN (14:33)
[2022-06-12] MEDS: Gabapentin 300 MG CAP PO SCH ×3 (05:28→20:29)
[2022-06-12] MEDS: Acetaminophen/Codeine 30-300mg Tablet PO SCH ×4 (05:29→23:13)
[2022-06-12] MEDS: Acetaminophen 325 MG TAB PO SCH ×4 (05:29→23:13)
[2022-06-12] MEDS: Enoxaparin Sodium 30 MG/0.3 ML SYRINGE SC SCH ×2 (09:31→20:24)
[2022-06-12] MEDS: Famotidine 20 MG TAB PO SCH ×2 (09:32→20:25)
[2022-06-12] MEDS: Cyclobenzaprine 10 MG TAB PO PRN ×2 (09:38→20:25)
[2022-06-12] MEDS: Polyethylene Glycol 3350 17 GM Packet PO SCH (13:52)
[2022-06-12] MEDS: Senokot S 8.6-50 MG TAB PO SCH ×2 (13:53→20:28)
[2022-06-13] MEDS: Acetaminophen/Codeine 30-300mg Tablet PO SCH ×4 (05:18→23:34)
[2022-06-13] MEDS: Acetaminophen 325 MG TAB PO SCH ×4 (05:18→23:34)
[2022-06-13] MEDS: Gabapentin 300 MG CAP PO SCH ×3 (05:18→21:08)
[2022-06-13] MEDS: Enoxaparin Sodium 30 MG/0.3 ML SYRINGE SC SCH ×2 (09:15→21:08)
[2022-06-13] MEDS: Polyethylene Glycol 3350 17 GM Packet PO SCH (09:16)
[2022-06-13] MEDS: Famotidine 20 MG TAB PO SCH ×2 (09:16→21:08)
[2022-06-13] MEDS: Senokot S 8.6-50 MG TAB PO SCH ×2 (09:17→21:07)
[2022-06-13] MEDS: Cyclobenzaprine 10 MG TAB PO PRN ×2 (09:25→21:13)
[2022-06-14] MEDS: Acetaminophen/Codeine 30-300mg Tablet PO SCH ×2 (05:40→12:22)
[2022-06-14] MEDS: Gabapentin 300 MG CAP PO SCH (05:41)
[2022-06-14] MEDS: Acetaminophen 325 MG TAB PO SCH ×2 (05:41→12:21)
[2022-06-14] MEDS: Senokot S 8.6-50 MG TAB PO SCH (09:13)
[2022-06-14] MEDS: Enoxaparin Sodium 30 MG/0.3 ML SYRINGE SC SCH (09:13)
[2022-06-14] MEDS: Famotidine 20 MG TAB PO SCH (09:13)
[2022-06-14] MEDS: Polyethylene Glycol 3350 17 GM Packet PO SCH (09:14)
[2022-06-14 11:38] VITALS: BP 120/79; TEMP 97.8
== END 2022-06-14 13:54 | disposition home or self-care (01) | DRG 493 ==
LOC: SURG A 22:51
PROVIDERS: ADMIT Surgery; ATTEND Surgery
PROC: 0QSG04Z Reposition Right Tibia with Internal Fixation Device, Open Approach (ICD-10-PCS; principal; 2022-06-07)
DX: S82.141A Displaced bicondylar fracture of right tibia, initial encounter for closed fracture (principal); Z68.41 Body mass index [BMI] 40.0-44.9, adult; E66.9 Obesity, unspecified; W10.9XXA Fall (on) (from) unspecified stairs and steps, initial encounter; Z20.822 Contact with and (suspected) exposure to COVID-19; M19.90 Unspecified osteoarthritis, unspecified site; K21.9 Gastro-esophageal reflux disease without esophagitis; D64.9 Anemia, unspecified; Z90.49 Acquired absence of other specified parts of digestive tract; Z90.710 Acquired absence of both cervix and uterus; Z79.899 Other long term (current) drug therapy
CPT/HCPCS: 36415; 76377; 80048; 80053; 80306; 80307; 83735; 84100; 85025; 85610; 85730; 86850; 86900; 86901; C1713; J1100; J1650; J1885; J2250; J2270; J2405; J2704; J2795; J3010; J3475; J3490; J7050; S0020

== ENCOUNTER 2022-10-03 07:44 | Outpatient (CLI) | payer OTHER | END 2022-10-03 07:45 | disposition home or self-care (01) | LOC: NM 07:44 | PROVIDERS: ATTEND Family Medicine | DX: E05.90 Thyrotoxicosis, unspecified without thyrotoxic crisis or storm (principal) | CPT/HCPCS: 78014; A9509 ==